=== PATIENT | female | born 1950 | race African-American/Black ===

== ENCOUNTER 2021-09-24 08:45 | Day surgery (SDC) | payer MEDICARE, MEDICAID ==
[~2021-09-24] VITALS: Ht 162.6 cm; Wt 96.6 kg
[~2021-09-24 08:45] MED LIST: ATEN-42 PO; DEXL60CA3 PO; METF-414 PO; ROSU20TA2 PO; TRIA1TAB5 PO
[2021-09-24] MEDS ORDERED: SODIUM CHLORIDE 0.9% 1,000 ML IV SCH (09:00)
[2021-09-24] MEDS ORDERED: OMEP20CA14 MT (10:35)
[2021-09-24] MEDS ORDERED: SIMV-43 MT (10:35)
[2021-09-24] MEDS ORDERED: ASCO500C18 MT (10:35)
[2021-09-24] MEDS ORDERED: MESA0.37 MT (10:35)
[2021-09-24] MEDS ORDERED: OMEG-118 MT (10:35)
[2021-09-24] MEDS ORDERED: METO-396 MT (10:35)
[2021-09-24] MEDS ORDERED: GLIM2TAB30 MT (10:35)
[2021-09-24] MEDS ORDERED: SUCR1ORA15 PO (10:35)
[2021-09-24] MEDS ORDERED: DYR5 MT (10:35)
[2021-09-24] MEDS ORDERED: PROPOFOL 200MG/20ML VIAL IV ONE ×2 (14:39→15:23)
[2021-09-24] MEDS ORDERED: MIDAZOLAM HCL 2 MG/2 ML VIAL ONE (14:40)
[2021-09-24] MEDS ORDERED: ONDANSETRON HCL 4MG/2ML INJ ONE (14:42)
[2021-09-24] MEDS ORDERED: DEXAMETHASONE 4MG/ML 1ML VIAL ONE (14:42)
[2021-09-24] MEDS ORDERED: LIDOCAINE HCL 1% 10 MG/ML 10ML VIAL ONE (14:42)
[2021-09-24] MEDS ORDERED: FENTANYL CITRATE/PF 50MCG/ML 2ML VIAL ONE (14:44)
[2021-09-24] MEDS ORDERED: KETOROLAC 30MG/ML VIAL ONE (14:46)
== END 2021-09-24 16:30 | disposition home or self-care (01) ==
LOC: OR 08:45
PROVIDERS: ATTEND Internal Medicine Gastroenterology
DX: K62.5 Hemorrhage of anus and rectum (principal); R19.7 Diarrhea, unspecified; R15.2 Fecal urgency; R10.9 Unspecified abdominal pain; D64.9 Anemia, unspecified; R12 Heartburn; K51.90 Ulcerative colitis, unspecified, without complications; K57.30 Diverticulosis of large intestine without perforation or abscess without bleeding; K63.89 Other specified diseases of intestine; K31.89 Other diseases of stomach and duodenum; K29.50 Unspecified chronic gastritis without bleeding; E11.9 Type 2 diabetes mellitus without complications; E78.00 Pure hypercholesterolemia, unspecified; I10 Essential (primary) hypertension; Z79.82 Long term (current) use of aspirin; Z79.84 Long term (current) use of oral hypoglycemic drugs; Z79.899 Other long term (current) drug therapy; Z98.890 Other specified postprocedural states; Z20.822 Contact with and (suspected) exposure to COVID-19
CPT/HCPCS: 43239; 45380; 82962; 87426; 88305; 88312; 88313; 93005; J1100; J1885; J2250; J2405; J2704; J3010; J3490

== ENCOUNTER → 2023-09-29 | Day surgery (SDC) | payer MEDICARE, OTHER ==
[~2023-09-29] VITALS: Ht 162.6 cm; Wt 95.3 kg
[~2023-09-29] MED LIST changes: -ATEN-42 PO; +ATOR20TA65 PO; +CHOL500051 PO; +DEXAMETHASONE 4MG/ML 1ML VIAL ONE; -DEXL60CA3 PO; +DYR5 MT; +FAMO40TA7 PO; +FENTANYL CITRATE/PF 50MCG/ML 2ML VIAL ONE; +GLIM2TAB30 MT; +LIDOCAINE HCL/PF 2% 20MG/ML 5 ML/VIAL ONE; +METO-396 MT; +MIDAZOLAM HCL 2 MG/2 ML VIAL ONE; +OMEP20CA14 MT; +ONDANSETRON HCL 4MG/2ML INJ ONE; +PHENYLEPHRINE HCL 10 MG/ML 1ML (IV VIAL) IV ONE; +PROPOFOL 200MG/20ML VIAL IV ONE; -ROSU20TA2 PO; +SIMETHICONE 40 MG/0.6 ML 15ML ONE; +SODIUM CHLORIDE 0.9% 1,000 ML IV SCH; -TRIA1TAB5 PO
[2023-09-29 10:08] LABS: HEMATOCRIT. 41.7 % (36.0-48.0); HEMOGLOBIN. 13.5 g/dL (12.0-16.0); LYMPHOCYTES % 27.8 % (20.0-50.0); MEAN CORPUSCULAR HEMOGLOBIN 28.8 pg (28.0-32.0); MEAN CORPUSCULAR HGB CONC 32.3 g/dL (31.0-37.0); MEAN CORPUSCULAR VOLUME 89.2 fL (81.0-99.0); MEAN PLATELET VOLUME 7.6 fl (7.4-10.4); MONOCYTES % 6.8 % (2.0-8.0); NEUTROPHILS % 61.4 % (40.0-76.0); PLATELET 340 x1000/uL (130-400); RED BLOOD CELL COUNT 4.67 mill/uL (4.2-5.4); RED CELL DISTRIBUTION WIDTH 13.2 % (11.6-14.6); WHITE BLOOD COUNT 9.2 x1000/uL (4.5-11.0)
[2023-09-29 11:15] LABS: CALCIUM 9.8 mg/dL (8.7-10.4); CARBON DIOXIDE 28 mEq/L (21-32); CHLORIDE 101 mEq/L (98-107); CREATININE 0.6 mg/dL (0.6-1.0); GLUCOSE 148 mg/dL (70-105); POTASSIUM 3.6 mEq/L (3.5-5.1); SODIUM 140 mEq/L (136-145); UREA NITROGEN BLOOD 8 mg/dL (9-23)
== END | disposition home or self-care (01) ==
LOC: OR 08:58
PROVIDERS: ATTEND Internal Medicine Gastroenterology
DX: K51.80 Other ulcerative colitis without complications (principal); K57.30 Diverticulosis of large intestine without perforation or abscess without bleeding; K63.5 Polyp of colon; I10 Essential (primary) hypertension; E11.9 Type 2 diabetes mellitus without complications; E78.5 Hyperlipidemia, unspecified; K21.9 Gastro-esophageal reflux disease without esophagitis; M19.90 Unspecified osteoarthritis, unspecified site; F41.9 Anxiety disorder, unspecified; Z79.84 Long term (current) use of oral hypoglycemic drugs; Z79.899 Other long term (current) drug therapy; Z98.890 Other specified postprocedural states
CPT/HCPCS: 80048; 85025; 36415; 88305; 93005; 45380; J3010; J1100; J3490; J2250; J2405; J2370; J2704